=== PATIENT | female | born 1975 | race Native Hawaiian/Other Pacific Islander ===

== ENCOUNTER 2018-07-03 20:47 | Emergency (ER) | payer BC, OTHER ==
[~2018-07-03] VITALS: Ht 154.9 cm; Wt 59.0 kg
[2018-07-03] MEDS ORDERED: ACETAMINOPHEN ES 500 MG TABLET PO ONE (22:15)
[2018-07-03 22:23] LABS: *BILIRUBIN,URIN NEGATIVE (NEGATIVE); *BLOOD, URINE 2+ (NEGATIVE); *COLOR,URINE YELLOW (YELLOW); *KETONES,URINE NEGATIVE (NEGATIVE); *UROBILINOGEN,URINE 0.2 E.U./dl (NORMAL); LEUKOCYTE ESTERASE ,URINE NEGATIVE (NEGATIVE); NITRITE, URINE NEGATIVE (NEGATIVE); UGLUCOSE NEGATIVE (NEGATIVE)
[2018-07-03 22:25] LABS: *URINE HCG, QUAL NEGATIVE (NEGATIVE)
[2018-07-03] MEDS ORDERED: ACETAMINOPHEN ES 500 MG TABLET ONE (22:28)
[2018-07-03 22:29] LABS: *CLARITY,URINE HAZY (CLEAR)
[2018-07-03 22:30] LABS: RBC,URINE 20-50 /HPF (0-3); WBC,URINE 0-3 /HPF (0-3)
[2018-07-03 22:31] LABS: BACTERIA,URINE MODERATE /HPF (NONE SEEN); MUCUS,URINE FEW /LPF (0-FEW); SQUAMOUS EPITHELIAL CELL,UR MODERATE /HPF (NONE SEEN)
--- NOTE | 2018-07-03 23:25 | NUR ---
Patient discharged to home in stable conditon. Written and verbal after care instructions given. Patient verbalizes understanding of instructions. Patient ambulated with stable gait.
[2018-07-03 23:26] VITALS: BP 150/92
== END 2018-07-03 23:26 | disposition home or self-care (01) ==
LOC: ER 20:48
DX: R31.29 Other microscopic hematuria (principal); R51 Headache; Z88.1 Allergy status to other antibiotic agents; Z88.5 Allergy status to narcotic agent
CPT/HCPCS: 84703; 87086; 87400; A4663; A9150